=== PATIENT | male | born 2000 | race Caucasian/White ===

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

== ENCOUNTER 2019-09-15 09:48 | Emergency (ER) | payer OTHER ==
[2019-09-15 09:59] VITALS: BP 122/74; PULSE 86; TEMP 97.9; BMI 22.6
[2019-09-15] MEDS ORDERED: ACETAMINOPHEN 500 MG TABLET (FP) PO ONE (10:37)
[2019-09-15] MEDS ORDERED: SODIUM CHLORIDE 0.9% 500 ML INFUS.BAG IV ONE (10:37)
--- NOTE | 2019-09-15 10:38 | PDOC ---
History of Present Illness - General Chief Complaint: Pain Stated Complaint: PAIN Time Seen by Provider: 09/15/19 10:00 History Source: Patient Exam Limitations: No Limitations - History of Present Illness Initial Comments: 09/15/19 11:01 18M PMH kidney stone p/w acute onset LLQ pain described as sharp, nonradiating, and currently decreasing. Pain is worse but similar in quality to prior stone. one episode nbnb vomiting; not currently nauseated and is PO tolerant. Denies testicular pain / swelling. Denies f/c/d/bloodystool, hematuria, dysuria. no prior abd surg. PCN allergy - unknown rxn. Father at bedside. Past History - Medical History Allergies/Adverse Reactions: Allergies Allergy/AdvReac Type Severity Reaction Status Date / Time Penicillins Allergy Verified 09/15/19 09:56 Home Medications: Ambulatory Orders NK [No Known Home Medication] 09/15/19 COPD: No - Immunization History Immunization Up to Date: Yes - Psycho-Social/Smoking History Smoking Status: No Smoking History: Current every day smoker Number of Cigarettes Smoked Daily: 0 Information on smoking cessation initiated: No - Substance Abuse Hx (Audit-C & DAST Scrn) How often the patient has a drink containing alcohol: Monthly or less Score: In Men: 4 or > Positive; In Women: 3 or > Positive: 1 Screen Result (Pos requires Nsg. Audit-10AR): Negative Review of Systems - Review of Systems Comments:: 09/15/19 20:31 CONSTITUTIONAL: Denies F / C HEENT: Denies headache, lightheadedness, dizziness, changes in vision / hearing, diplopia, blurry vision, sore throat, rhinorrhea RESP: Denies SOB, cough, orthopnea, TAYLOR CARD: Denies chest pain, palpitations GI: +LLQ pain, one episode of vomiting. Denies N/D, bloody stool, inability to tolerate PO : neg testicular pain / swelling. Denies dysuria, hematuria, frequency NEURO: Denies numbness, tingling, weakness MSK: Denies back pain SKIN: Denies rashes *Physical Exam - Vital Signs Last Vital Signs Temp Pulse Resp BP Pulse Ox 97.9 F 86 18 122/74 97 09/15/19 09:53 09/15/19 09:53 09/15/19 09:53 09/15/19 09:53 09/15/19 09:53 - Physical Exam 09/15/19 20:31 GEN: Well appearing, NAD, comfortable. AAOx3. HEENT: NC/AT, EOMI, PERRL. No facial asymmetry. Moist mucous membranes. Normal voice. Supple neck w/ FROM. CV: S1/S2, RRR, no m/r/g LUNG: CTAB, no wheezes, crackles, rales, rhonchi. GI: mild ttp of the LLQ, o/w soft, ndnt, +BS, no guarding, no rebound. No masses. Neg CVAT b/l. : no scrotal pain or swelling, no hernia. MSK: No obvious deformities of all extremities. SKIN: Warm, dry, no rashes appreciated. PSYCH: Normal mood and affect. NEURO: Moving all extremities well. ED Treatment Course - LABORATORY CBC & Chemistry Diagram: 09/15/19 10:00 09/15/19 10:00 Medical Decision Making - Medical Decision Making 09/15/19 20:31 18M w/ prior kidney stone c/o LLQ pain similar in quality to prior stone. afebrile. Likely kidney stone labs pain ctrl fluids US 09/15/19 11:06 labs reviewed blood in UA c/w stone pt declined toradol, states pain is well controlled f/u US report // US report w/o hydro or acute renal pathology pt dc'd home w/ pcp f/u and return precautions Discharge - Discharge Information Problems reviewed: Yes Clinical Impression/Diagnosis: Kidney stone, Left lower quadrant abdominal pain Condition: Stable Disposition: HOME - Admission No - Follow up/Referral Referrals: Ralph Rivero MD [Primary Care Provider] - - Patient Discharge Instructions Patient Printed Discharge Instructions: DI for Kidney Stones Additional Instructions: Take ibuprofen, 400-600mg every 6-8 hours, as needed for pain. Drink plenty of fluids. Keep an eye out for any passage of stones. Follow up with your Primary Care Doctor regarding this ED visit in the next 5-7 days Return to the nearest Emergency Department if you experience new or worsening symptoms. - Post Discharge Activity Work/Back to School Note: Back to Work
[2019-09-15 11:00] LABS: BASO % 0.8 % (0-2.0); EOS % 4.1 % (0-4.5); HEMATOCRIT 43.8 % (35.4-49); HEMOGLOBIN 14.8 GM/dL (11.7-16.9); LYMPH % 56.8 % (8-40); MCH 29.3 pg (25.7-33.7); MCHC 33.8 g/dl (32.0-35.9); MEAN CELL VOLUME 86.9 fl (80-96); MEAN PLT VOLUME 7.3 fl (7.5-11.1); NEUT % 22.3 % (42.8-82.8); PLATELET COUNT 281 K/MM3 (134-434); RBC 5.04 M/mm3 (4.00-5.60); RDW 13.6 % (11.9-15.9); WHITE BLOOD COUNT 4.3 K/mm3 (4.0-10.0)
[2019-09-15 11:03] LABS: EPI CELLS 11 /uL (0-25.1); HYALINE CASTS 3 /uL (0-3.1); URINE APPEARANCE CLEAR; URINE BACTERIA 18 /uL (0-1359); URINE BILIRUBIN NEGATIVE (NEGATIVE); URINE COLOR YELLOW; URINE GLUCOSE (UA) NEGATIVE (NEGATIVE); URINE KETONE TRACE (NEGATIVE); URINE LEUK ESTERASE NEGATIVE (NEGATIVE); URINE NITRITE NEGATIVE (NEGATIVE); URINE PROTEIN TRACE (NEGATIVE); URINE RBC 206 /uL (0-23.9); URINE UROBILINOGEN 0.2 mg/dL (0.2-1.0); URINE WBC 19 /uL (0-25.8)
[2019-09-15] MEDS ORDERED: KETOROLAC TROMETHAMINE 30 MG/1 ML VIAL IVPUSH ONE (11:32)
[2019-09-15 11:33] LABS: ALBUMIN 4.1 g/dl (3.4-5.0); BILIRUBIN,TOTAL 0.4 mg/dL (0.2-1); BLOOD UREA NITROGEN 8.9 mg/dL (7-18); CALCIUM 9.3 mg/dL (8.5-10.1); CREATININE 1.1 mg/dL (0.55-1.3); POTASSIUM 3.8 mmol/L (3.5-5.1); TOT PROT 7.6 g/dl (6.4-8.2)
[2019-09-15] MEDS ORDERED: KETOROLAC TROMETHAMINE 30 MG/1 ML VIAL ONE (11:41)
--- NOTE | 2019-09-15 12:06 | PDOC ---
Documentation entered by Irene Uriostegui SCRIBE, acting as scribe for Tila Bell MD. Tila Bell MD: This documentation has been prepared by the [employer]irvannie, SCRIBE, under my direction and personally reviewed by me in its entirety. I confirm that the documentation accurately reflects all work, treatment, procedures, and medical decision making performed by me. Attending Attestation - Resident Resident Name: AyanJace - ED Attending Attestation I have performed the following: I have examined & evaluated the patient, The case was reviewed & discussed with the resident, I agree w/resident's findings & plan, Exceptions are as noted - HPI HPI: 09/15/19 11:02 The patient is a 18 year old male with a significant past medical history of renal calculi who presents to the ED with left lower quadrant abdominal pain described as sharp sensation to the left inguinal with associated one episode of NBNB emesis. He denies an inability to tolerate PO, testicular pain, dysuria, hematuria, fevers, or chills. Allergies: PCN Primary Care Physician: Dr. Rivero - Physicial Exam PE: 09/15/19 11:58 GENERAL: at the time of my exam the patient is well-appearing, A/Ox4, no distress, answers questions appropriately, appears comfortable, well nourished HEENT: PERRLA, EOMI, moist mucous membranes, audit spec at bedside NECK/BACK: no midline ttp, no spinal step-off or deformity, no hematoma, full ROM, neck supple CARDIOVASCULAR: regular rate/rhythm, no MGR, strong peripheral pulses, capillary refill <2 seconds, extremities wwp, no edema LUNGS/RESPIRATORY: no respiratory distress, CTAB GI/ABDOMEN: symmetric [id number], normoactive BS, soft, no ttp, no midline pulsatile masses : no CVA tenderness, testicular exam per resident note MSK/EXTREMITIES: no muscle atrophy, no acute deformity SKIN: warm and dry, no pallor, no jaundice, no rash, no pathologic-appearing bruising, no skin breakdown, no cuts, no lesions NEUROLOGICAL: GCS 15, CN II-XII grossly intact, 5/5 strength proximally and distally, no facial droop - Medical Decision Making 18YOM Pt p/w severe flank pain. Initial Vital Signs Temp Pulse Resp BP Pulse Ox 97.9 F 86 18 122/74 97 09/15/19 09:53 09/15/19 09:53 09/15/19 09:53 09/15/19 09:53 09/15/19 09:53 DDX IBNLT: most likely renal colic, very unlikely obstructive uropathy with infection given the patient's well appearance and reassuring vital signs. Possible UTI and will assess for this possibility. The patient is very young and healthy PMH and therefore low probability of any dangerous vascular pathology, also this does not fit the clinical picture with his history and exam. Very unlikely any testicular pathology given normal testicular and scrotal exam, possible musculoskeletal or constipation but these are diagnoses of exclusion. W/U ordered: Labs as noted below, US Kidneys Ureters Bladder TX ordered: IVF, Toradol, Tylenol Laboratory Tests 09/15/19 09/15/19 09/15/19 10:00 10:00 10:00 WBC 4.3 RBC 5.04 Hgb 14.8 Hct 43.8 MCV 86.9 MCH 29.3 MCHC 33.8 RDW 13.6 Plt Count 281 MPV 7.3 L Absolute Neuts (auto) 1.0 L Neutrophils % 22.3 L D Lymphocytes % 56.8 H Monocytes % 16.0 H Eosinophils % 4.1 Basophils % 0.8 Nucleated RBC % 0 Sodium 141 Potassium 3.8 Chloride 105 Carbon Dioxide 31 Anion Gap 5 L BUN 8.9 Creatinine 1.1 Est GFR (CKD-EPI)AfAm 111.41 Est GFR (CKD-EPI)NonAf 96.13 Random Glucose 89 Calcium 9.3 Total Bilirubin 0.4 AST 19 ALT 19 Alkaline Phosphatase 54 Total Protein 7.6 Albumin 4.1 Urine Color Yellow Urine Appearance Clear Urine pH 6.0 Ur Specific H[place] 1.021 Urine Protein Trace Urine Glucose (UA) Negative Urine Ketones Trace H Urine Blood 3+ H Urine Nitrite Negative Urine Bilirubin Negative Urine Urobilinogen 0.2 Ur Leukocyte Esterase Negative Urine WBC (Auto) 19 Urine RBC (Auto) 206 Urine Casts (Auto) 3 U Epithel Cells (Auto) 11 Urine Bacteria (Auto) 18 Provider Orders Category Date Time Status CBC WITH DIFFERENTIAL Stat Lab 09/15/19 10:00 Completed COMP METABOLIC PANEL Stat Lab 09/15/19 10:00 Completed UA [UA ([facility]) ONLY] Stat Lab 09/15/19 10:00 Completed Acetaminophen [Tylenol -] Medication 09/15/19 10:37 Discontinued 1,000 mg PO ONCE ONE Ketorolac Injection [Toradol Injection -] Medication 09/15/19 11:41 Discontinued 30 mg .ROUTE .STK-MED ONE Ketorolac Injection [Toradol Injection -] Medication 09/15/19 11:32 Discontinued 30 mg IVPUSH ONCE ONE Sodium Chloride [Normal Saline -] Medication 09/15/19 10:37 Discontinued 1,000 ml IV ONCE ONE URINE CULTURE Stat Micro 09/15/19 10:00 Completed KIDNEY / RENAL US [US] Stat Ultrasound 09/15/19 10:58 Completed Patient's US is essentially normal. Pain resolves with medications and likely patient has passed a renal stone. On final exam VSS and patient is comfortable, repeat abdominal exam is benign. He is appropriate for discharge home with close outpatient follow-up. Return precautions discussed. Discharge - Discharge Information Problems reviewed: Yes Clinical Impression/Diagnosis: Left lower quadrant abdominal pain Condition: Stable Disposition: HOME - Admission No - Follow up/Referral Referrals: Ralph Rivero MD [Primary Care Provider] - - Patient Discharge Instructions Patient Printed Discharge Instructions: DI for Kidney Stones Additional Instructions: Take ibuprofen, 400-600mg every 6-8 hours, as needed for pain. Drink plenty of fluids. Keep an eye out for any passage of stones. Follow up with your Primary Care Doctor regarding this ED visit in the next 5-7 days Return to the nearest Emergency Department if you experience new or worsening symptoms. - Post Discharge Activity Work/Back to School Note: Back to Work
== END 2019-09-15 12:16 | disposition home or self-care (01) ==
LOC: JER 09:48
PROC: 3E0333Z Introduction of Anti-inflammatory into Peripheral Vein, Percutaneous Approach (ICD-10-PCS; principal; 2019-09-15)
DX: N20.0 Calculus of kidney (principal); R10.32 Left lower quadrant pain
CPT/HCPCS: 36415; 76775-TC; 80053; 81003; 85025; 87086; 99284-25

== ENCOUNTER 2019-09-17 06:56 | Emergency (ER) | payer OTHER ==
[2019-09-17 07:14] VITALS: BP 116/75; PULSE 78; TEMP 98.5; BMI 24.0
--- NOTE | 2019-09-17 07:37 | PDOC ---
History of Present Illness - General Chief Complaint: Pain, Acute Stated Complaint: ABD PAIN Time Seen by Provider: 09/17/19 07:36 History Source: Patient Exam Limitations: No Limitations - History of Present Illness Initial Comments: 09/17/19 08:14 HPI: This is a 18 y/o male with a history significant for kidney stones presenting to the ED because of constant sharp 10/10 LLQ pain radiating to his groin. The pain began when he woke up on Monday, and he was seen in the ED where his pain was treated and an U/S showed no acute pathology. He was asymptomatic all day yesterday, and then the pain began this morning while he was trying to fall asleep. He took 1000mg of acetaminophen at 6:30 this morning which completely relieved his pain. Patient states the pain is similar to the pain he had the last time he had a stone. He endorses accompanying nausea/vomiting and mild dysuria. He denies fever/chills, hematuria or discharge. ROS: GENERAL/CONSTITUTIONAL: No fever/chills. CARDIOVASCULAR: No chest pain or shortness of breath. RESPIRATORY: No cough, wheezing GASTROINTESTINAL: Yes nausea/vomiting. No diarrhea or constipation. GENITOURINARY: Yes dysuria. No change in urination. No discharge. MUSCULOSKELETAL: No back pain. SKIN: No rash NEUROLOGIC: No headache, vertigo HEMATOLOGIC/LYMPHATIC: No anemia, easy bleeding. PMH: Kidney stones PSx: Denied Social Hx: Sexually active, uses condoms. Meds: Denied Allergies: Penicillin PE: GENERAL: Awake, alert, and fully oriented, in no acute distress. Patient sitting in a chair in vertical, conversing normally. HEAD: No signs of trauma. Normocephalic. EYES: PERRL, EOMI NECK: Normal ROM, supple LUNGS: Breath sounds equal, clear to auscultation bilaterally. No wheezes, and no crackles HEART: Regular rate and rhythm, normal S1 and S2, no murmurs, rubs or gallops ABDOMEN: Soft, mild LUQ tenderness, normoactive bowel sounds. No guarding, no rebound. No masses NEUROLOGICAL: Normal speech, normal gait SKIN: Warm, Dry, no rashes or lesions noted. GENITOURINARY: Testicles without erythema or edema. Left testicle mildly tender to palpation. 09/17/19 08:31 MDM: This is a 18 y/o male with a history significant for kidney stones presenting to the ED because of constant sharp 10/10 LLQ pain radiating to his groin. Patient endorses left testicular pain coinciding with LLQ abdominal pain. R/o torsion vs kidney stone vs epididymitis vs STI - Scrotal U/S - U/A with culture - GC/Chl - HIV - Syphilis 09/17/19 09:35 Urine Test Results Urine Color Yellow 09/17/19 08:40 Urine Appearance Clear 09/17/19 08:40 Urine pH 6.5 (5.0-8.0) 09/17/19 08:40 Ur Specific [place] 1.022 (1.010-1.035) 09/17/19 08:40 Urine Protein Trace (NEGATIVE) 09/17/19 08:40 Urine Glucose (UA) Negative (NEGATIVE) 09/17/19 08:40 Urine Ketones Trace (NEGATIVE) H 09/17/19 08:40 Urine Blood 3+ (NEGATIVE) H 09/17/19 08:40 Urine Nitrite Negative (NEGATIVE) 09/17/19 08:40 Urine Bilirubin Negative (NEGATIVE) 09/17/19 08:40 Ur Leukocyte Esterase Negative (NEGATIVE) 09/17/19 08:40 No sign of infection. Blood 3+, same as 09/1409/17/19 10:31 RENAL U/S: Morphologically normal kidneys with no evidence of hydronephrosis or acute pathology. 09/17/19 10:33 Patient is still without pain, N/V 09/17/19 11:06 SCROTAL U/S: Impression: Small left hydrocele, which is nonspecific. The rest of the examination appears unremarkable without evidence of testicular torsion or mass Patient has remained pain free during entire ED stay U/S negative for torsion Will give referral for urology follow-up and instructions for pain management. Patient eloped. Past History - Medical History Allergies/Adverse Reactions: Allergies Allergy/AdvReac Type Severity Reaction Status Date / Time Penicillins Allergy Verified 09/15/19 09:56 Home Medications: Ambulatory Orders Acetaminophen [Tylenol -] 500 mg PO PRN 09/17/19 COPD: No - Immunization History Immunization Up to Date: Yes - Psycho-Social/Smoking History Smoking Status: No Smoking History: Current every day smoker Have you smoked in the past 12 months: Yes Number of Cigarettes Smoked Daily: 0 Information on smoking cessation initiated: No - Substance Abuse Hx (Audit-C & DAST Scrn) How often the patient has a drink containing alcohol: Never Score: In Men: 4 or > Positive; In Women: 3 or > Positive: 0 Screen Result (Pos requires Nsg. Audit-10AR): Negative In the last yr the pt used illegal drug/Rx for NonMed reason: No Score: Yes response is considered Positive: 0 Screen Result (Positive result requires Nsg. DAST-10): Negative *Physical Exam - Vital Signs Last Vital Signs Temp Pulse Resp BP Pulse Ox 98.5 F 78 18 116/75 98 09/17/19 07:08 09/17/19 07:08 09/17/19 07:08 09/17/19 07:08 09/17/19 07:08 Discharge - Discharge Information Problems reviewed: Yes Clinical Impression/Diagnosis: Left lower quadrant abdominal pain Disposition: ELOPED - Admission No - Follow up/Referral Referrals: Cisco Dominguez MD [Staff Physician] - CallBack Reminder: gc/c, urine culture - Patient Discharge Instructions Patient Printed Discharge Instructions: DI for Kidney Stones Additional Instructions: You were seen in the emergency department for abdominal pain due to a suspected kidney stone. Home Care: - You may use over the counter pain medications such as ibuprofen (Motrin, Advil) 600mg every 6 hours as needed for pain. If you have continued pain, you may alternate this medication with acetaminophen (Tylenol) 650-1000mg. - Make sure you are drinking plenty of fluids to help pass the kidney stone Follow Up: - You have been referred to a urologist for follow up, Dr Dominguez. You should make an appointment within the next week, especially if your symptoms do not resolve over the next few days. - Seek immediate medical care if you have worsening of your symptoms, you do not pass the stone within 3-4 days, you stop making urine entirely, you have noticeable blood in your urine, you develop fevers to 101F, or you have any medical emergency. - Post Discharge Activity
--- NOTE | 2019-09-17 08:24 | PDOC ---
Attending Attestation - Resident Resident Name: WadeAnnmarie - ED Attending Attestation I have performed the following: I have examined & evaluated the patient, The case was reviewed & discussed with the resident, I agree w/resident's findings & plan, Exceptions are as noted - HPI HPI: 09/26/19 18:40 18 years old past medical history stent for kidney stones and renal colic presents with left lower quadrant pain rating to his testicle. Patient presents to the ED with similar day prior pain improved but then returned now is mild to moderate persistent constant no exacerbating or alleviating factors. - Physicial Exam PE: 09/26/19 18:40 Vitals: Triage Vital signs reviewed General Appearance: No acute distress, well nourished well developed, Head: Atraumatic, Cardiac: Regular rate and rhythym, no murmurs, no rubs, no gallops, Lungs: Clear to auscultation bilateral, good air movement bilaterally, Abdomen: Soft, non distended, normal bowel sounds, non tender to palpation Genitourinary: No testicular pain or tenderness palpation Extremities: Full range of motion to all extremities, no cyanosis, clubbing, or edema Skin: Warm and dry, no rashes or lesions, no rash, no petechiae Psych: Normal mood, normal affect - Medical Decision Making 09/26/19 18:41 Well-appearing no apparent distress with history examination consistent with renal colic UA demonstrates blood x-ray and ultrasound demonstrate no acute pathology at this time Patient was seen comfortable ambulating around ED eloped prior to receiving discharge paperwork but had been instructed to follow-up with urology prior Discharge - Discharge Information Problems reviewed: Yes Clinical Impression/Diagnosis: Left lower quadrant abdominal pain Condition: Stable Disposition: HOME - Follow up/Referral Referrals: Cisco Dominguez MD [Staff Physician] - CallBack Reminder: gc/c, urine culture - Patient Discharge Instructions Patient Printed Discharge Instructions: DI for Kidney Stones Additional Instructions: You were seen in the emergency department for abdominal pain due to a suspected kidney stone. Home Care: - You may use over the counter pain medications such as ibuprofen (Motrin, Advil) 600mg every 6 hours as needed for pain. If you have continued pain, you may alternate this medication with acetaminophen (Tylenol) 650-1000mg. - Make sure you are drinking plenty of fluids to help pass the kidney stone Follow Up: - You have been referred to a urologist for follow up, Dr Dominguez. You should make an appointment within the next week, especially if your symptoms do not resolve over the next few days. - Seek immediate medical care if you have worsening of your symptoms, you do not pass the stone within 3-4 days, you stop making urine entirely, you have noticeable blood in your urine, you develop fevers to 101F, or you have any medical emergency. - Post Discharge Activity
[2019-09-17 09:29] LABS: EPI CELLS 13 /uL (0-25.1); HYALINE CASTS 1 /uL (0-3.1); PH,URINE 6.5 (5.0-8.0); URINE APPEARANCE CLEAR; URINE BACTERIA 4 /uL (0-1359); URINE BILIRUBIN NEGATIVE (NEGATIVE); URINE COLOR YELLOW; URINE GLUCOSE (UA) NEGATIVE (NEGATIVE); URINE KETONE TRACE (NEGATIVE); URINE LEUK ESTERASE NEGATIVE (NEGATIVE); URINE NITRITE NEGATIVE (NEGATIVE); URINE PROTEIN TRACE (NEGATIVE); URINE RBC 1389 /uL (0-23.9); URINE WBC 10 /uL (0-25.8)
== END 2019-09-17 12:06 | disposition home or self-care (01) ==
LOC: JER 06:56
DX: R10.32 Left lower quadrant pain (principal)
CPT/HCPCS: 36415; 74018-TC-FY; 76775-TC; 76870-TC; 81003; 86780; 87086; 87389; 87491; 87591; 87661; 99284-25

== ENCOUNTER 2021-12-10 13:00 | Emergency (ER) | payer OTHER ==
[2021-12-10 13:20] VITALS: BP 135/69; PULSE 74; RESP 18; TEMP 97.7; BMI 23.3
[2021-12-10] MEDS ORDERED: SODIUM CHLORIDE 0.9% 500 ML INFUS.BAG IV ONE (14:14)
[2021-12-10] MEDS ORDERED: morphine CARPU-JECT 2 MG/1 ML DISP.SYRIN IVPUSH ONE (14:14)
[2021-12-10] MEDS ORDERED: ONDANSETRON 4 MG/2 ML VIAL IVPUSH ONE ×2 (14:14→18:37)
[2021-12-10 15:24] LABS: BASO % 0.4 % (0-2.0); HEMATOCRIT 45.1 % (35.4-49); HEMOGLOBIN 15.2 GM/dL (11.7-16.9); LYMPH % 30.7 % (8-40); MCH 28.9 pg (25.7-33.7); MCHC 33.6 g/dl (32.0-35.9); MEAN CELL VOLUME 85.9 fl (80-96); MEAN PLT VOLUME 6.8 fl (7.5-11.1); NEUT % 53.9 % (42.8-82.8); PLATELET COUNT 262 10^3/uL (134-434); RBC 5.25 M/mm3 (4.00-5.60); RDW 13.2 % (11.9-15.9); WHITE BLOOD COUNT 3.8 K/mm3 (4.0-10.0)
[2021-12-10 15:45] LABS: BLOOD UREA NITROGEN 11.5 mg/dL (7-18); CALCIUM 9.7 mg/dL (8.5-10.1)
[2021-12-10 15:46] LABS: ALBUMIN 4.1 g/dl (3.4-5.0)
[2021-12-10 15:51] LABS: BILIRUBIN,TOTAL 0.5 mg/dL (0.2-1); TOT PROT 7.6 g/dl (6.4-8.2)
[2021-12-10] MEDS ORDERED: KETOROLAC TROMETHAMINE 30 MG/1 ML VIAL IVPB ONE (16:23)
[2021-12-10] MEDS ORDERED: KETOROLAC TROMETHAMINE 30 MG/1 ML VIAL ONE (16:44)
[2021-12-10] MEDS ORDERED: ONDANSETRON 4 MG/2 ML VIAL ONE (18:40)
== END 2021-12-10 20:39 | disposition home or self-care (01) ==
LOC: JER 13:00
PROC: 3E033NZ Introduction of Analgesics, Hypnotics, Sedatives into Peripheral Vein, Percutaneous Approach (ICD-10-PCS; principal; 2021-12-10)
PROC: 3E033GC Introduction of Other Therapeutic Substance into Peripheral Vein, Percutaneous Approach (ICD-10-PCS; 2021-12-10)
PROC: 3E0333Z Introduction of Anti-inflammatory into Peripheral Vein, Percutaneous Approach (ICD-10-PCS; 2021-12-10)
PROC: 3E033GC Introduction of Other Therapeutic Substance into Peripheral Vein, Percutaneous Approach (ICD-10-PCS; 2021-12-10)
DX: N20.0 Calculus of kidney (principal)
CPT/HCPCS: 36415; 74177-TC; 80053; 85025; 86850; 86900; 86901; 99285-25; Q9967

== ENCOUNTER 2023-12-10 05:49 | Emergency (ER) | payer OTHER ==
[2023-12-10 06:01] VITALS: BP 119/72; PULSE 97; RESP 18; TEMP 98; BMI 25.0
[2023-12-10] MEDS ORDERED: ACETAMINOPHEN 325 MG TABLET (FP) ONE (06:58)
[2023-12-10] MEDS ORDERED: METHOCARBAMOL 500 MG TABLET ONE (06:59)
[2023-12-10] MEDS: LIDOCAINE 5% TOPICAL PATCH TP ONE (07:02)
[2023-12-10] MEDS: ACETAMINOPHEN 325 MG TABLET (FP) PO ONE (07:02)
[2023-12-10] MEDS: METHOCARBAMOL 500 MG TABLET PO ONE (07:02)
[2023-12-10] MEDS ORDERED: LIDOCAINE PATCH REMOVAL MC SCH (22:00)
== END 2023-12-10 10:20 | disposition home or self-care (01) ==
LOC: JER 05:49
DX: S40.811A Abrasion of right upper arm, initial encounter (principal); S50.311A Abrasion of right elbow, initial encounter; M25.551 Pain in right hip; M25.561 Pain in right knee; V43.62XA Car passenger injured in collision with other type car in traffic accident, initial encounter
CPT/HCPCS: 73030-TC-RT-FY; 73070-TC-RT-FY; 73502-TC-RT-FY; 73560-TC-RT-FY; 99284-25